=== PATIENT | male | born 1975 | race African-American/Black ===

== ENCOUNTER 2018-09-24 05:33 | Emergency (ER) | payer SELFPAY ==
[~2018-09-24] VITALS: Ht 175.3 cm; Wt 79.4 kg
[~2018-09-24 05:33] MED LIST: CYCLOBENZAPRINE10 MG ORAL; IBUPROFEN600 MG ORAL; NORCO 5-325 TA1 EACH ORAL
[2018-09-24] MEDS ORDERED: NKM (05:41)
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
[2018-09-24 05:49] VITALS: BP_SYST 110; BP_SYST 115; BP_DIAS 74; BP_DIAS 77
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
[2018-09-24] MEDS ORDERED: Tetanus/Diptheria/Pertussis IM ONE (06:00)
--- NOTE | 2018-09-24 06:10 | NUR ---
ED Nurse Note: xray completed
[2018-09-24] MEDS ORDERED: IBUPROFEN600 MG ORAL (06:17)
[2018-09-24] MEDS ORDERED: AUGMENTIN 875-1 EAC1 ORAL (06:17)
[2018-09-24 06:22] VITALS: BP 110/77
--- NOTE | 2018-09-24 06:23 | NUR ---
ER DISCHARGE NOTE: Patient is cleared to be discharged per ERMD, pt is aox4, on room air, with stable vital signs. pt was given dc and prescription instructions, pt was able to verbalize understanding, pt id band removed. pt is able to ambulate with steady gait. pt took all belongings.
--- NOTE | 2018-09-24 06:44 | Diagnostic Imaging Report ---
EXAM: XR Left Ribs, 2 Views. CLINICAL HISTORY: PAIN TECHNIQUE: Frontal and oblique views of the left ribs. COMPARISON: No relevant prior studies available. FINDINGS: Lungs: Lung volumes are within normal limits. No consolidation. Pleural spaces: Unremarkable. No pneumothorax. Bones: No acute fracture. IMPRESSION: No evidence of rib fracture. No pneumothorax.
== END 2018-09-24 06:23 | disposition home or self-care (01) ==
LOC: EMR 05:52
DX: S20.212A Contusion of left front wall of thorax, initial encounter (principal); S61.452A Open bite of left hand, initial encounter; X58.XXXA Exposure to other specified factors, initial encounter; Y92.9 Unspecified place or not applicable; Z23 Encounter for immunization
CPT/HCPCS: 90471; 90715; 93005; 99283

== ENCOUNTER 2018-12-25 16:39 | Emergency (ER) | payer OTHER ==
[~2018-12-25] VITALS: Ht 172.7 cm; Wt 72.6 kg
[~2018-12-25 16:39] MED LIST changes: +AUGMENTIN 875-1 EAC1 ORAL; +NKM
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
[2018-12-25 16:45] VITALS: BP 134/87
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
--- NOTE | 2018-12-25 16:52 | NUR ---
ED Nurse Note: pt is in custody.
[2018-12-25 17:02] VITALS: BP 134/87
--- NOTE | 2018-12-25 17:04 | NUR ---
ER DISCHARGE NOTE: Patient is cleared to be discharged per ERMD with [facility] clearance paper, pt is aox1-2, on room air, with stable vital signs. [employer] officer Wm was given dc instructions, she was able to verbalize understanding, pt id band removed. pt is able to ambulate with steady gait and handcuff on and assisted by 2 [employer]. pt took all belongings.
== END 2018-12-25 18:10 ==
LOC: EDBD 16:39 → EMR 17:33
DX: F10.129 Alcohol abuse with intoxication, unspecified (principal); V49.9XXA Car occupant (driver) (passenger) injured in unspecified traffic accident, initial encounter; Y92.9 Unspecified place or not applicable
CPT/HCPCS: 99283